=== PATIENT | female | born 1940 | race Hispanic/Latino ===

== ENCOUNTER 2018-02-19 04:41 | Emergency (ER) | payer BC, MEDICARE ==
[~2018-02-19 04:41] MED LIST: ALBU0.63 IH; ASPI-1197 PO; AZIT500T4 PO; BENZ-39 PO; HYDR25TA PO; LEVO100T4 PO; METH1ADH6 TP; METO25TA3 PO; METO50TA9 PO; TRAM50TA2 PO
[2018-02-19] MEDS ORDERED: ONDANSETRON HCL 4 MG/2 ML VIAL ONE (05:16)
[2018-02-19] MEDS ORDERED: SODIUM CHLORIDE 0.9% 500ML 500 ML IV ONE (05:17)
[2018-02-19] MEDS ORDERED: MORPHINE SULFATE 4 MG/1ML SYG ONE (05:17)
[2018-02-19 05:35] LABS: BASOPHILS % (AUTO) 0.6 % (0.0-5.0); EOSINOPHILS % (AUTO) 1.3 % (0.0-8.0); HEMATOCRIT 38.7 % (36-48); LYMPHOCYTES % (AUTO) 12.5 % (21.0-51.0); MEAN CORPUSCULAR HEMOGLOBIN 26.8 pg (27.0-33.0); MEAN CORPUSCULAR HGB CONC 33.7 g/dL (32.0-36.0); MEAN CORPUSCULAR VOLUME 79.3 fL (79-99); MONOCYTES % (AUTO) 6.6 % (3.0-13.0); PLATELET COUNT (AUTO) 308 K/uL (130-400); RED BLOOD CELL COUNT(AUTO) 4.88 MIL/uL (4.00-5.50); RED CELL DISTRIBUTION WIDTH 14.4 % (11.0-15.5); WHITE BLOOD COUNT (AUTO) 12.5 K/uL (4.8-10.8)
[2018-02-19 05:46] LABS: CREATININE 0.8 mg/dL (0.5-1.5); POTASSIUM 3.7 mmol/L (3.5-5.1)
[2018-02-19 05:50] LABS: ALBUMIN 3.8 g/dL (3.5-5.0); BILIRUBIN,TOTAL 0.4 mg/dL (0.2-1.0); TOTAL PROTEIN, SERUM 7.3 g/dL (6.0-8.3)
[2018-02-19] MEDS ORDERED: CEFTRIAXONE SODIUM 1 GM ONE (06:10)
[2018-02-19] MEDS ORDERED: MORPHINE SULFATE 2 MG/ML 1ML SYG ONE (07:44)
== END 2018-02-19 08:14 | disposition home or self-care (01) ==
LOC: EDH 04:41
DX: K52.9 Noninfective gastroenteritis and colitis, unspecified (principal); R30.0 Dysuria; I48.91 Unspecified atrial fibrillation; I10 Essential (primary) hypertension; Z90.710 Acquired absence of both cervix and uterus; Z98.890 Other specified postprocedural states; Z88.8 Allergy status to other drugs, medicaments and biological substances; Z88.1 Allergy status to other antibiotic agents
CPT/HCPCS: 36415; 74176; 80053; 82550; 83690; 84484; 85025; 93005; 96361; 96372; 96374; 96375; 99285; J0696; J2270; J2405; J7040; 96376

== ENCOUNTER 2018-11-03 10:58 | Emergency (ER) | payer BC, MEDICARE, OTHER ==
[2018-11-03] MEDS ORDERED: HYDROCODONE/ACETAMINOPHEN 5/325 MG TAB ONE (11:54)
[2018-11-03] MEDS ORDERED: CYCLOBENZAPRINE HCL 10 MG TABLET ONE (11:54)
[2018-11-03 12:00] LABS: BASOPHILS % (AUTO) 0.9 % (0.0-5.0); HEMATOCRIT 35.7 % (36-48); LYMPHOCYTES % (AUTO) 27.4 % (21.0-51.0); MEAN CORPUSCULAR HGB CONC 33.7 g/dL (32.0-36.0); MEAN CORPUSCULAR VOLUME 80.1 fL (79-99); MONOCYTES % (AUTO) 9.3 % (3.0-13.0); NEUTROPHILS % (AUTO) 58.4 % (40.0-77.0); PLATELET COUNT (AUTO) 296 K/uL (130-400); RED BLOOD CELL COUNT(AUTO) 4.45 MIL/uL (4.00-5.50); RED CELL DISTRIBUTION WIDTH 13.9 % (11.0-15.5); WHITE BLOOD COUNT (AUTO) 6.9 K/uL (4.8-10.8)
[2018-11-03 12:09] LABS: POTASSIUM 3.6 mmol/L (3.5-5.1)
[2018-11-03 12:12] LABS: INR 2.31 (0.85-1.15); PARTIAL THROMBOPLASTIN TIME 47.1 SEC (26.3-35.5); PROTHROMBIN TIME 23.9 SEC (9.6-11.6)
[2018-11-03 12:14] LABS: ALBUMIN 3.2 g/dL (3.5-5.0); BILIRUBIN,TOTAL 0.2 mg/dL (0.2-1.0); TOTAL PROTEIN, SERUM 6.8 g/dL (6.0-8.3)
== END 2018-11-03 14:05 | disposition home or self-care (01) ==
LOC: EDH 10:58
DX: M79.7 Fibromyalgia (principal); E66.9 Obesity, unspecified; M79.652 Pain in left thigh; I48.91 Unspecified atrial fibrillation; I10 Essential (primary) hypertension; Z88.1 Allergy status to other antibiotic agents; Z88.8 Allergy status to other drugs, medicaments and biological substances
CPT/HCPCS: 36415; 80053; 82550; 85025; 85610; 85730; 93971

== ENCOUNTER 2019-10-20 17:07 | Inpatient (IN) | payer OTHER ==
[~2019-10-20] VITALS: Ht 157.5 cm; Wt 91.9 kg
[2019-10-20 18:20] LABS: BASOPHILS % (AUTO) 0.5 % (0.0-5.0); HEMATOCRIT 36.4 % (36-48); LYMPHOCYTES % (AUTO) 23.6 % (21.0-51.0); MEAN CORPUSCULAR HEMOGLOBIN 26.9 pg (27.0-33.0); MEAN CORPUSCULAR HGB CONC 33.2 g/dL (32.0-36.0); MEAN CORPUSCULAR VOLUME 80.9 fL (79-99); NEUTROPHILS % (AUTO) 64.4 % (40.0-77.0); PLATELET COUNT (AUTO) 249 K/uL (130-400); RED CELL DISTRIBUTION WIDTH 13.2 % (11.0-15.5); WHITE BLOOD COUNT (AUTO) 8.1 K/uL (4.8-10.8)
[2019-10-20 18:34] LABS: POTASSIUM 3.7 mmol/L (3.5-5.1)
[2019-10-20 18:35] LABS: INR 1.84 (0.85-1.15); PARTIAL THROMBOPLASTIN TIME 39.1 SEC (26.3-35.5); PROTHROMBIN TIME 19.4 SEC (9.6-11.6)
[2019-10-20 18:41] LABS: ALBUMIN 3.3 g/dL (3.5-5.0); BILIRUBIN,TOTAL 0.1 mg/dL (0.2-1.0); TOTAL PROTEIN, SERUM 6.5 g/dL (6.0-8.3)
[2019-10-20] MEDS ORDERED: LACTULOSE 20 GM/30 ML UDCUP PO PRN (19:30)
[2019-10-20] MEDS ORDERED: ONDANSETRON HCL 4 MG/2 ML VIAL IV PRN (19:30)
[2019-10-20] MEDS ORDERED: ACETAMINOPHEN 325 MG TAB PO PRN (19:30)
[2019-10-20] MEDS ORDERED: HYDRALAZINE HCL 20 MG/ML VIAL IV PRN (19:45)
[2019-10-20] MEDS ORDERED: SODIUM CHLORIDE 0.9% 250 ML IV ONE (20:16)
[2019-10-20] MEDS ORDERED: DEXAMETHASONE SOD PHOSPHATE 10MG/ML 1ML VIAL ONE (20:17)
[2019-10-20] MEDS ORDERED: DiphenhydrAMINE HCL 50 MG/ML VIAL ONE (20:17)
[2019-10-20] MEDS ORDERED: IOHEXOL-350 75 ML VIAL IV ONE (20:25)
[2019-10-20 21:46] LABS: HEMOGLOBIN A1C 6.6 % (4.0-6.0)
[2019-10-20 21:56] LABS: THYROID STIMULATING HORMONE 2.15 uIU/mL (0.36-3.74)
[2019-10-20] MEDS ORDERED: FAMOTIDINE/PF 20 MG/2 ML VIAL IV ONE (23:13)
[2019-10-21 04:35] VITALS: BP 164/88
[2019-10-21] MEDS: ACETAMINOPHEN 325 MG TAB PO PRN ×2 (04:52→09:12)
[2019-10-21] MEDS ORDERED: ISOS30TA6 PO (05:19)
[2019-10-21] MEDS ORDERED: WARF-57 PO ×3 (05:19→11:16)
[2019-10-21] MEDS ORDERED: DOCU-116 PO (05:19)
[2019-10-21] MEDS ORDERED: CLON0.2T PO (05:19)
[2019-10-21] MEDS ORDERED: WARF2.5T85 PO ×2 (05:19→11:16)
[2019-10-21] MEDS ORDERED: ALBUTEROL SULFATE IH (05:19)
[2019-10-21] MEDS ORDERED: P-EP-94 PO (05:19)
[2019-10-21] MEDS ORDERED: CELE200 PO (05:19)
[2019-10-21] MEDS ORDERED: NITR0.4T50 SL (05:19)
--- NOTE | 2019-10-21 05:28 | NUR ---
ADMIT PT ADMITTED TO ROOM 322, AAOX3. COMPLAINTS OF HEADACHE. MEDICATED WITH TYLENOL PO. NOTED SLIGHT DIFFICULTY SWALLOWING BUT ABLE TO SWALLOW. ADMISSION CARE DONE. ADMISSION DATA BASE COMPLETED. TELE MONITOR PLACED AND VPACED WITH HR=[id number]. SCD'S APPLIED TO BLE. INSTRUCTED ON FALL PRECAUTIONS, VERBALIZES UNDERSTANDING. HOME MEDS ENTERED IN THE COMPUTER, FOR MD TO RECONCILE. IN FOR MORE CARE AND MANAGEMENT. Addendum: 10/21/19 at 0914 by KELVIN MITCHELL RN RN Amended: Links added.
[2019-10-21 07:06] LABS: BASOPHILS % (AUTO) 0.1 % (0.0-5.0); HEMATOCRIT 41.1 % (36-48); LYMPHOCYTES % (AUTO) 16.3 % (21.0-51.0); MEAN CORPUSCULAR HEMOGLOBIN 26.5 pg (27.0-33.0); MEAN CORPUSCULAR HGB CONC 32.8 g/dL (32.0-36.0); MEAN CORPUSCULAR VOLUME 80.6 fL (79-99); MONOCYTES % (AUTO) 1.2 % (3.0-13.0); NEUTROPHILS % (AUTO) 81.8 % (40.0-77.0); PLATELET COUNT (AUTO) 299 K/uL (130-400); RED CELL DISTRIBUTION WIDTH 13.2 % (11.0-15.5); WHITE BLOOD COUNT (AUTO) 6.9 K/uL (4.8-10.8)
[2019-10-21 07:38] LABS: CREATININE 1.1 mg/dL (0.5-1.5); POTASSIUM 3.8 mmol/L (3.5-5.1)
[2019-10-21 07:43] LABS: INR 1.99 (0.85-1.15); PARTIAL THROMBOPLASTIN TIME 39.7 SEC (26.3-35.5); PROTHROMBIN TIME 20.9 SEC (9.6-11.6)
[2019-10-21] MEDS ORDERED: FAMOTIDINE/PF 20 MG/2 ML VIAL IV SCH (09:00)
[2019-10-21 09:08] VITALS: BP 164/81
[2019-10-21] MEDS ORDERED: CELECOXIB 200 MG CAP PO PRN (09:30)
[2019-10-21] MEDS ORDERED: NITROGLYCERIN 0.4 MG SL TAB SL SCH (09:30)
[2019-10-21] MEDS ORDERED: CLONIDINE HCL 0.2 MG TABLET PO PRN (09:30)
[2019-10-21] MEDS ORDERED: LORATADINE/PSEUDOEPHED 5/120 MG 1 EACH TAB.SR.12H PO PRN (09:30)
[2019-10-21] MEDS ORDERED: METOPROLOL SUCCINATE 50 MG TAB.SR.24H PO SCH (09:45)
--- NOTE | 2019-10-21 10:30 | NUR ---
DYSPHAGIA EVAL COMPLETED. -S/S OF ASPIRATION. RECOMMEND REGULAR TEXTURE, THIN LIQUIDS; PILLS WHOLE WITH LIQUIDS. Addendum: 10/21/19 at 1210 by FIOR WILLIAMSON, [facility] Amended: Links added.
--- NOTE | 2019-10-21 10:45 | NUR ---
COGNITIVE-LINGUISTIC EVAL COMPLETED. COGNITIVE-LINGUISTIC SKILLED WITHIN FUNCTIONAL LIMITS. EVALUATION: Pt AAOX3. Pt REQUESTS WANTS AND NEEDS INDEPENDENTLY. Pt INTELLIGIBLE AT 100% ACCURACY TO THE UNFAMILIAR LISTENER. Pt COMMUNICATING AT CONVERSATIONAL LEVEL WITH NO DEFICITS IDENTIFIED AT THIS TIME. Pt COMPLETED COGNITIVE-LINGUISTIC EVALUATION TARGETING: ORIENTATION, ATTENTION/CONCENTRATION, MEMORY (IMMEDIATE, SHORT-TERM AND LONG-TERM), PROBLEM SOLVING, LOGIC/REASONING/INFERENCE, THOUGHT ORGANIZATION, FUNCTIONAL MATH AND TELLING TIME. Pt ABLE TO COMPLETE TASKS WITH CORRECT AND TIMELY ANSWERS TO ALL SECTIONS. G-CODES SPOKEN LANGUAGE EXPRESSION: [id number] Addendum: 10/21/19 at 1216 by FIOR WILLIAMSON [facility] Amended: Links added.
[2019-10-21] MEDS ORDERED: WARFARIN SODIUM 5 MG TAB PO SCH ×2 (11:30→16:00)
[2019-10-21 11:47] VITALS: BP 101/65
[2019-10-21 13:00] VITALS: BP 158/72
--- NOTE | 2019-10-21 13:17 | NUR ---
PT HAD AN EPISODE OF SLURRED SPEECH FOR ABOUT 30SEC TO 1 MINUTE THAT RESOLVED BACK TO NORMAL SPEECH AND EXTREMITY STRENGTH; I HAVE INFORMED DR WHEELER AND HE STATED TO INFORM DR AYALA WHO SAID TO GET CT OF HEAD AND START ON BABY ASPIRIN ON TOP OF THE COUMADIN THAT SHE IS TAKING IF CT NEGATIVE; HE SAID TO ALSO GET A CARDIOLOGY CONSULT
--- NOTE | 2019-10-21 13:45 | NUR ---
IN REGARDS TO CARDIOLOGY CONSULT I RECEIVED A CALL BACK FROM DR ROTH WHO IS ACTUARY AND HE STATED DURING REGULAR BUSINESS HOURS CALL THE MD THE PATIENT ACTUALLY SEE'S --DR MILLER--UNLESS THEY ARE OUT OF TOWN; OTHERWISE HE WILL SEE THE PATIENT AFTER 5PM
--- NOTE | 2019-10-21 14:33 | NUR ---
I SPOKE TO DR MILLER ON THE PHONE AND HE RECOMMENDED TO TRANSFER PT TO [facility] IF PT IS HAVING REACCURING STROKES FOR ANGIOGRAM AND INTERVENTIONAL STENT OR ENDARDECTOMY IF NECCESSARY; DR AYALA AND DR WHEELER ARE AGREEABLE WITH THE TX; I HAVE INFORMED CONGRESSIONAL AIDE OF NEED FOR TRANSFER. DR WHEELER STATED HE HAS SPOKEN TO DR CROUCH AT [facility] AND HE WILL ACCEPT THE PT.
[2019-10-21 17:02] VITALS: BP 175/92
[2019-10-21] MEDS ORDERED: ASPIRIN 81MG TAB.CHEW PO SCH (17:29)
--- NOTE | 2019-10-21 18:23 | NUR ---
I SPOKE ON THE PHONE TO BILL THE FREE LANCE ARTIST AT [facility] AND FAXED HIM THE CT OF HEAD AND NECK RESULTS THAT HE WAS NEEDING; HE ASKED IF PT HAS BEEN SWABBED FOR COVID AND I STATED NO; HE SAID THEY WOULD HAVE TO SWAB PT THERE AT [facility] THEN.
--- NOTE | 2019-10-21 18:36 | NUR ---
PT IS STILL WAITING FOR COMPLETION OF TRANSFER TO [facility] FOR HIGHER LEVEL OF CARE FOR HER REACCURENT TIA'S; SHE WAS GIVEN TYLENOL EARLIER IN THE DAY FOR HEADACHE AND IT DID TAKE CARE OF HER HEADACHE, SHE HAS BEEN AMBULATING SOME IN HER ROOM; I HAVE BEEN ENCOURAGING HER TO CALL FOR ASSISTANCE WHEN SHE WANTS TO GET UP TO AVOID A POSSIBLE FALL; PT'S DAUGHTER HAS CALLED 2X TO CHECK ON PATIENT AND PT DID STATE IT IS OK TO GIVE HER FAMILY INFORMATION; PT TOOK HER OWN HOME MEDICATIONS WHEN I TOLD HER THAT IN THE HOSPITAL THEY WOULD BE STARTED TOMORROW MORNING; SHE STATED SHE DID NOT WANT TO WAIT AND TOOK HER OWN; SHE DID TAKE THE SCHEDULED COUMADIN FROM ME THAT WAS CONTINUED ON HER HOME MEDS, SHE TOOK HER OWN BABY ASPIRIN. BESIDE THE EPISODE OF SLURRED SPEECH AND WEAKNESS AT 1245 TODAY PT HAS BEEN ASYMPTOMATIC OF TIA.
[2019-10-21 20:00] VITALS: BP 145/69
[2019-10-22] VITALS: BP 127/69
--- NOTE | 2019-10-22 00:20 | NUR ---
NOTE CONTACTED BILINGUAL RECEPTIONIST HODA TO SEE IF ANY NEWS WAS AVAILABLE FOR PATIENT'S TRANSFER. SHE SAYS SHE HAS NOT RECEIVED [place] FROM [facility] BUT WILL CALLED THERE TO FIND OUT AND WILL LET ME KNOW ONCE SHE IS NOTIFIED. INFORMED PATIENT OF NEWS.
[2019-10-22 03:30] VITALS: BP 169/72
[2019-10-22 04:07] VITALS: BP 140/67
[2019-10-22 04:16] LABS: BASOPHILS % (AUTO) 0.4 % (0.0-5.0); EOSINOPHILS % (AUTO) 0.7 % (0.0-8.0); HEMATOCRIT 37.1 % (36-48); LYMPHOCYTES % (AUTO) 27.8 % (21.0-51.0); MEAN CORPUSCULAR HEMOGLOBIN 26.2 pg (27.0-33.0); MEAN CORPUSCULAR HGB CONC 32.1 g/dL (32.0-36.0); MEAN CORPUSCULAR VOLUME 81.5 fL (79-99); MONOCYTES % (AUTO) 7.8 % (3.0-13.0); NEUTROPHILS % (AUTO) 62.9 % (40.0-77.0); PLATELET COUNT (AUTO) 288 K/uL (130-400); RED BLOOD CELL COUNT(AUTO) 4.55 MIL/uL (4.00-5.50); RED CELL DISTRIBUTION WIDTH 13.4 % (11.0-15.5); WHITE BLOOD COUNT (AUTO) 9.8 K/uL (4.8-10.8)
[2019-10-22 04:23] LABS: INR 2.02 (0.85-1.15); PARTIAL THROMBOPLASTIN TIME 37.4 SEC (26.3-35.5); PROTHROMBIN TIME 21.2 SEC (9.6-11.6)
[2019-10-22 04:37] LABS: CREATININE 1.1 mg/dL (0.5-1.5); POTASSIUM 3.4 mmol/L (3.5-5.1)
--- NOTE | 2019-10-22 05:16 | NUR ---
NOTE FRUIT HARVEST MACHINE OPERATOR HODA JOSEPH RN CAME TO UNIT. INFORMED THAT THERE WILL BE A BED AVAILABLE FOR PATIENT AFTER 7AM. SHE UPDATED PAPERWORK. ARRANGED AND CONTACTED EMS TO COME FOR PATIENT AFTER 0645 TO TRANSPORT. INFORMED PATIENT WITH THIS INFORMATION. PATIENT HAS ALL HER BELONGING READY AND PACKED.
--- NOTE | 2019-10-22 07:00 | NUR ---
NOTE [address] [facility] [place]. NO CONTACT WITH NURSE WAS MADE. 0651 CALLED AGAIN TO ATTEMPT GIVING REPORT. WAS CONNECTED WITH NURSE NOVOA. REPORT GIVEN ANSWERED QUESTIONS. 0705 UPDATED PATIENT.
[2019-10-22] MEDS ORDERED: LEVOTHYROXINE 112 MCG TABLET PO SCH (07:30)
[2019-10-22 08:06] VITALS: BP 142/70
--- NOTE | 2019-10-22 08:53 | NUR ---
EMS CONTRACTED BY PHONE WAS TOLD PATIENT IS NEXT ON THERE LIST AND THAT ALL UNITS ARE OUT ON EMERGENCY CALL
[2019-10-22] MEDS ORDERED: HYDROCHLOROTHIAZIDE 25 MG TABLET PO SCH (09:00)
[2019-10-22] MEDS ORDERED: ISOSORBIDE MONO 30MG TAB SR PO SCH (09:00)
[2019-10-22] MEDS ORDERED: DOCUSATE SODIUM 100 MG CAP PO SCH (09:00)
[2019-10-22] MEDS ORDERED: METOPROLOL SUCCINATE 50 MG TAB.SR.24H PO SCH (09:00)
[2019-10-22] MEDS ORDERED: ASPIRIN 81MG TAB.CHEW PO SCH (09:00)
--- NOTE | 2019-10-22 11:05 | NUR ---
EMS CONTACTED , WAS TOLD THAT THEY DO HAVE PATIENT ON LIST AND THAT THE UNIT WAS PULLING IN NOW AND THEY WOULD CALL WHEN THEY ARE ON THERE WAY TO GET PATIENT.
[2019-10-22 11:30] VITALS: BP 159/69
[2019-10-22] MEDS ORDERED: WARFARIN SODIUM 2.5 MG TAB PO SCH (16:00)
== END 2019-10-22 12:23 | disposition short-term general hospital (02) | DRG 69 ==
LOC: EDH 17:07 → EDHIP 19:22 → 3DH 10-21 04:34
PROVIDERS: ADMIT Hospitalist; ATTEND Hospitalist
DX: G45.9 Transient cerebral ischemic attack, unspecified (principal); I10 Essential (primary) hypertension; E89.0 Postprocedural hypothyroidism; I65.21 Occlusion and stenosis of right carotid artery; R47.1 Dysarthria and anarthria; R26.81 Unsteadiness on feet; I48.91 Unspecified atrial fibrillation; E66.9 Obesity, unspecified; Z82.49 Family history of ischemic heart disease and other diseases of the circulatory system; Z79.01 Long term (current) use of anticoagulants; Z82.5 Family history of asthma and other chronic lower respiratory diseases; Z95.0 Presence of cardiac pacemaker; Z90.710 Acquired absence of both cervix and uterus; Z68.37 Body mass index [BMI] 37.0-37.9, adult
CPT/HCPCS: 36415; 70450; 70496; 70498; 80048; 80053; 80061; 83036; 84443; 85025; 85610; 85651; 85730; 92522; 92610; 93005; 93306; 93356; 93880; 97039; 99291; G0378; J0360; J1100; J1200; J3490; J7050; Q9967

== ENCOUNTER → 2022-06-04 | Outpatient (CLI) | payer MEDICARE ==
[~2022-06-04] MED LIST changes: -ALBU0.63 IH; +ALBUTEROL SULFATE IH; -AZIT500T4 PO; -BENZ-39 PO; +CELE200 PO; +CLON0.2T PO; +DOCU-116 PO; +ISOS30TA92 PO; -METH1ADH6 TP; -METO25TA3 PO; +NITR0.4T50 SL; +P-EP-94 PO; -TRAM50TA2 PO; +WARF-57 PO; +WARF2.5T85 PO
== END | disposition home or self-care (01) ==
LOC: RAH 14:51
PROVIDERS: ATTEND Family Medicine
DX: Z12.31 Encounter for screening mammogram for malignant neoplasm of breast (principal)
CPT/HCPCS: 77067

== ENCOUNTER → 2022-10-08 | Outpatient (CLI) | payer MEDICARE | END | disposition home or self-care (01) | LOC: RAH 10:44 | PROVIDERS: ATTEND Family Medicine | DX: N63.0 Unspecified lump in unspecified breast (principal) ==